=== PATIENT | male | born 1955 | race Caucasian/White ===

== ENCOUNTER 2018-05-06 15:59 | Emergency (ER) | payer OTHER ==
[~2018-05-06] VITALS: Ht 170.2 cm; Wt 77.1 kg
[~2018-05-06 15:59] MED LIST: AMLO5TAB10 PO; CARV6.2511 PO; CEFD300C PO; FLEC100T PO; LACT1CAP19 PO; LEVO125T5 PO; LEVO25TA55 PO; LIALDA1.2 GM PO; LINE600T PO; LISI-334 PO; LISI-338 PO; SERT50TA8 PO
--- NOTE | 2018-05-06 17:18 | PHYS DOC ---
Past Medical History Past Medical History: Depression, Hypertension, Hypothyroid, MRSA, Other Additional Past Medical Histor: Crohn's (SHABANA JOHNSON MD) Adult General Chief Complaint Chief Complaint: SUICDAL IDEATION HPI HPI Patient is a 62 year old male who presents with his after an appointment with Dr. Nettles today, with feelings "tired of being sick" and passive suicidal ideation without a plan or preparation. 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 Endorses feelings of guilt, worthlessness in the context of not being able to work, and intermittent hopelessness. Denies sleep disturbances and anhedonia. Pt does access to lethal means in the home in the form of prescription medications but no access to guns. (SHABANA JOHNSON MD) Review of Systems Review of Systems Constitutional: Reports night sweats Eyes: Denies change in visual acuity, redness, or eye pain [] HENT: Denies nasal congestion or sore throat [] Respiratory: Denies cough or shortness of breath [] Cardiovascular: No additional information not addressed in HPI [] GI: Denies abdominal pain, nausea, vomiting, bloody stools or diarrhea [] : Denies dysuria or hematuria [] Musculoskeletal: Denies back pain or joint pain [] Integument: Reports infectious MRSA lesions Neurologic: Denies headache, focal weakness or sensory changes [] Endocrine: Denies polyuria or polydipsia [] All other systems were reviewed and found to be within normal limits, except as documented in this note. (SHABANA JOHNSON MD) Family History Family History Mother- suicide Son- suicide (SHABANA JOHNSON MD) Allergies Allergies Allergies Coded Allergies Type Severity Reaction Last Updated Verified I S O L A T I O N *CONTACT* Allergy Unknown 04/02/18 Yes No Known Medication Allergies Allergy Unknown 04/02/18 Yes (ZANDRA GRANADO DO) Physical Exam Physical Exam Constitutional: Well developed, well nourished, no acute distress, non-toxic appearance. [] HENT: Normocephalic, atraumatic, bilateral external ears normal, oropharynx moist, no oral exudates, nose normal. [] Eyes: PERRLA, EOMI, conjunctiva normal, no discharge. [] Neck: Normal range of motion, no tenderness, supple, no stridor. [] Cardiovascular:Heart rate regular rhythm, no murmur [] Lungs & Thorax: Bilateral breath sounds clear to auscultation [] Abdomen: Bowel sounds normal, soft, no tenderness, no masses, no pulsatile masses. [] Skin: Warm, dry, no erythema, no rash. [] Back: No tenderness, no CVA tenderness. [] Extremities: No tenderness, no cyanosis, no clubbing, ROM intact, no edema. [] Neurologic: Alert and oriented X 3, normal motor function, normal sensory function, no focal deficits noted. [] Psychologic: mood depressed with congruent affect. (SHABANA JOHNSON MD) Current Patient Data Vital Signs Vital Signs Date Time Temp Pulse Resp B/P (MAP) Pulse Ox O2 Delivery O2 Flow Rate FiO2 05/06/18 18:30 66 12 172/106 (128) 98 Room Air 05/06/18 16:12 99.1 99.1 ([facility]) Lab Values Laboratory Tests Test 05/06/18 17:14 05/06/18 17:58 White Blood Count 12.6 x10^3/uL (4.0-11.0) H Red Blood Count 3.73 x10^6/uL (4.30-5.70) L Hemoglobin 11.5 g/dL (13.0-17.5) L Hematocrit 34.7 % (39.0-53.0) L Mean Corpuscular Volume 93 fL (79-100) Mean Corpuscular Hemoglobin 31 pg (25-35) Mean Corpuscular Hemoglobin Concent 33 g/dL (31-37) Red Cell Distribution Width 13.5 % (11.5-14.5) Platelet Count 232 x10^3/uL (140-400) Neutrophils (%) (Auto) 77 % (31-73) H Lymphocytes (%) (Auto) 12 % (24-48) L Monocytes (%) (Auto) 8 % (0-9) Eosinophils (%) (Auto) 2 % (0-3) Basophils (%) (Auto) 1 % (0-3) Neutrophils # (Auto) 9.7 x10^3uL (1.8-7.7) H Lymphocytes # (Auto) 1.6 x10^3/uL (1.0-4.8) Monocytes # (Auto) 1.0 x10^3/uL (0.0-1.1) Eosinophils # (Auto) 0.2 x10^3/uL (0.0-0.7) Basophils # (Auto) 0.1 x10^3/uL (0.0-0.2) Sodium Level 142 mmol/L (136-145) Potassium Level 4.4 mmol/L (3.5-5.1) Chloride Level 106 mmol/L (98-107) Carbon Dioxide Level 29 mmol/L (21-32) Anion Gap 7 (6-14) Blood Urea Nitrogen 44 mg/dL (8-26) H Creatinine 2.6 mg/dL (0.7-1.3) H Estimated GFR (Cockcroft-Gault) 25.1 BUN/Creatinine Ratio 17 (6-20) Glucose Level 103 mg/dL (70-99) H Calcium Level 9.4 mg/dL (8.5-10.1) Total Bilirubin 0.5 mg/dL (0.2-1.0) Aspartate Amino Transferase (AST) 15 U/L (15-37) Alanine Aminotransferase (ALT) 16 U/L (16-63) Alkaline Phosphatase 88 U/L (46-116) Total Protein 7.2 g/dL (6.4-8.2) Albumin 3.0 g/dL (3.4-5.0) L Albumin/Globulin Ratio 0.7 (1.0-1.7) L Thyroid Stimulating Hormone (TSH) 27.093 uIU/mL (0.358-3.74) H Ethyl Alcohol Level < 10 mg/dL (0-10) Urine Opiates Screen Neg (NEG) Urine Methadone Screen Neg (NEG) Urine Barbiturates Neg (NEG) Urine Phencyclidine Screen Neg (NEG) Urine Amphetamine/Methamphetamine Neg (NEG) Urine Benzodiazepines Screen Pos (NEG) Urine Cocaine Screen Neg (NEG) Urine Cannabinoids Screen Neg (NEG) Urine Ethyl Alcohol Neg (NEG) Laboratory Tests 05/06/18 17:14 Laboratory Tests 05/06/18 17:14 ([facility]) Lab Values Laboratory Tests Test 05/06/18 17:14 White Blood Count 12.6 x10^3/uL (4.0-11.0) H Red Blood Count 3.73 x10^6/uL (4.30-5.70) L Hemoglobin 11.5 g/dL (13.0-17.5) L Hematocrit 34.7 % (39.0-53.0) L Mean Corpuscular Volume 93 fL (79-100) Mean Corpuscular Hemoglobin 31 pg (25-35) Mean Corpuscular Hemoglobin Concent 33 g/dL (31-37) Red Cell Distribution Width 13.5 % (11.5-14.5) Platelet Count 232 x10^3/uL (140-400) Neutrophils (%) (Auto) 77 % (31-73) H Lymphocytes (%) (Auto) 12 % (24-48) L Monocytes (%) (Auto) 8 % (0-9) Eosinophils (%) (Auto) 2 % (0-3) Basophils (%) (Auto) 1 % (0-3) Neutrophils # (Auto) 9.7 x10^3uL (1.8-7.7) H Lymphocytes # (Auto) 1.6 x10^3/uL (1.0-4.8) Monocytes # (Auto) 1.0 x10^3/uL (0.0-1.1) Eosinophils # (Auto) 0.2 x10^3/uL (0.0-0.7) Basophils # (Auto) 0.1 x10^3/uL (0.0-0.2) Sodium Level 142 mmol/L (136-145) Potassium Level 4.4 mmol/L (3.5-5.1) Chloride Level 106 mmol/L (98-107) Carbon Dioxide Level 29 mmol/L (21-32) Anion Gap 7 (6-14) Blood Urea Nitrogen 44 mg/dL (8-26) H Creatinine 2.6 mg/dL (0.7-1.3) H Estimated GFR (Cockcroft-Gault) 25.1 BUN/Creatinine Ratio 17 (6-20) Glucose Level 103 mg/dL (70-99) H Calcium Level 9.4 mg/dL (8.5-10.1) Total Bilirubin 0.5 mg/dL (0.2-1.0) Aspartate Amino Transferase (AST) 15 U/L (15-37) Alanine Aminotransferase (ALT) 16 U/L (16-63) Alkaline Phosphatase 88 U/L (46-116) Total Protein 7.2 g/dL (6.4-8.2) Albumin 3.0 g/dL (3.4-5.0) L Albumin/Globulin Ratio 0.7 (1.0-1.7) L Thyroid Stimulating Hormone (TSH) 27.093 uIU/mL (0.358-3.74) H Ethyl Alcohol Level < 10 mg/dL (0-10) Laboratory Tests 05/06/18 17:14 Laboratory Tests 05/06/18 17:14 (SHABANA JOHNSON MD) EKG EKG [] (SHABANA JOHNSON MD) Radiology/Procedures Radiology/Procedures [] (SHABANA JOHNSON MD) Course & Med Decision Making Course & Med Decision Making Pt is a 62 year old male with past medical history of MRSA cellulitis , chronic kidney disease stage 4, hypertension, hypothyroidism, depression, and significant genetic predisposition for mental illness presents with passive suicidal ideation. He denies any plan or preparation. Protective factors include and son whom he lives with, financial stability, and access to medical care. Pertinent Labs and Imaging studies reviewed. (See chart for details) Plan: -PAT consult -TSH rechecked with PCP on 05/05/18, last TSH 7.2 on 03/28/18 d/w pat at 550 pm s/o bethbergy 610 pm (SHABANA JOHNSON MD) Course & Med Decision Making Dr. Granado's note Received patient at 1810, agree with previous H&P. Patient continued to be in stable condition. 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 They feel that he is at low risk, has contracted for safety, has appropriate resources in the community. I agree with their assessment and patient is being discharged in improved condition. (ZANDRA GRANADO DO) Dragon Disclaimer Dragon Disclaimer This electronic medical record was generated, in whole or in part, using a voice recognition dictation system. (SHABANA JOHNSON MD) Departure Departure Impression: Primary Impression: Depression Disposition: 01 HOME, SELF-CARE Condition: IMPROVED Referrals: MATEUSZ OLIVARES MD (PCP) Problem Qualifiers Primary Impression: Depression Depression Type: unspecified Qualified Codes: F32.9 - Major depressive disorder, single episode, unspecified SHABANA JOHNSON MD May 06, 2018 17:18 ZANDRA GRANADO DO May 06, 2018 18:51
[2018-05-06 17:21] LABS: BASO # 0.1 x10^3/uL (0.0-0.2); BASO % 1 % (0-3); EOS # 0.2 x10^3/uL (0.0-0.7); EOS % 2 % (0-3); HEMATOCRIT 34.7 % (39.0-53.0); HEMOGLOBIN 11.5 g/dL (13.0-17.5); LYMPH # 1.6 x10^3/uL (1.0-4.8); LYMPH % 12 % (24-48); MEAN CORPUSCULAR HEMOGLOBIN 31 pg (25-35); MEAN CORPUSCULAR HGB CONC 33 g/dL (31-37); MEAN CORPUSCULAR VOLUME 93 fL (79-100); MONO % 8 % (0-9); NEUT # 9.7 x10^3uL (1.8-7.7); NEUT % 77 % (31-73); PLATELET COUNT 232 x10^3/uL (140-400); RED BLOOD COUNT 3.73 x10^6/uL (4.30-5.70); RED CELL DISTRIBUTION WIDTH 13.5 % (11.5-14.5); WHITE BLOOD COUNT 12.6 x10^3/uL (4.0-11.0)
[2018-05-06 17:36] LABS: CALCIUM 9.4 mg/dL (8.5-10.1); CREATININE 2.6 mg/dL (0.7-1.3); GFR 25.1; POTASSIUM 4.4 mmol/L (3.5-5.1)
[2018-05-06 17:42] LABS: ALBUMIN/GLOBULIN RATIO 0.7 (1.0-1.7); TOTAL BILIRUBIN 0.5 mg/dL (0.2-1.0); TOTAL PROTEIN 7.2 g/dL (6.4-8.2)
[2018-05-06 18:15] LABS: BARBITURATES NEG (NEG); BENZODIAZEPINES POS (NEG); CANNABINOIDS NEG (NEG); COCAINE NEG (NEG); METHADONE NEG (NEG); OPIATES NEG (NEG); PHENCYCLIDINE NEG (NEG)
[2018-05-06 18:18] LABS: AMPHETAMINE/METHAMPHETAMINE NEG (NEG)
[2018-05-06 18:30] VITALS: BP 172/106
== END 2018-05-06 19:09 | disposition home or self-care (01) ==
LOC: ER 15:59
DX: F32.9 Major depressive disorder, single episode, unspecified (principal); R45.851 Suicidal ideations; E03.9 Hypothyroidism, unspecified; I12.9 Hypertensive chronic kidney disease with stage 1 through stage 4 chronic kidney disease, or unspecified chronic kidney disease; N18.4 Chronic kidney disease, stage 4 (severe); Z91.041 Radiographic dye allergy status
CPT/HCPCS: 36415; 80053; 80307; 84443; 85025; 99284; G0480